=== PATIENT | male | born 1985 | race Caucasian/White ===

== ENCOUNTER 2019-03-18 20:04 | Emergency (ER) | payer SELFPAY ==
[2019-03-18] MEDS ORDERED: HYDROmorphONE 1 MG/ML SYG (20:08)
[2019-03-18] MEDS: HYDROmorphONE 1 MG/ML SYG IV (20:11)
[2019-03-18] MEDS: KETOROLAC 30 MG INJ IV (20:14)
[2019-03-18 20:25] LABS: ADD MAN DIFF? NO
[2019-03-18 20:29] LABS: WHITE BLOOD COUNT 9.9 10^3/ul (4.8-10.8)
[2019-03-18 20:29] LABS: BASOPHIL # 0.1 10^3/ul (0.0-0.1); BASOPHILS % 0.5 % (0.0-2.0); EOSINOPHILS % 0.1 % (0.0-7.0); HEMATOCRIT 41.8 % (42.0-52.0); HEMOGLOBIN 14.8 g/dl (14.0-18.0); LYMPHOCYTES # 1.5 10^3/ul (0.8-2.9); LYMPHOCYTES % 15.3 % (15.0-51.0); MEAN CORPUSCULAR HEMOGLOBIN 29.2 pg (29.0-33.0); MEAN CORPUSCULAR HGB CONC 35.4 g/dl (32.0-37.0); MEAN CORPUSCULAR VOLUME 82.4 fl (82.0-101.0); MEAN PLATELET VOLUME 9.3 fl (7.4-10.4); MONOCYTE # 0.6 10^3/ul (0.3-0.9); MONOCYTES % 5.6 % (0.0-11.0); NEUTROPHIL # 7.8 10^3/ul (1.6-7.5); NEUTROPHILS % 78.1 % (39.0-77.0); PLATELET COUNT 296 10^3/UL (140-415); RED BLOOD COUNT 5.07 10^6/ul (4.70-6.10); RED CELL DISTRIBUTION WIDTH 12.1 % (11.5-14.5)
[2019-03-18 20:52] LABS: ALANINE AMINOTRANSFERASE 46 IU/L (13-69); ALBUMIN 4.7 g/dl (3.3-4.9); ALBUMIN/GLOBULIN RATIO 1.42; ALKALINE PHOSPHATASE 74 IU/L (42-121); ANION GAP 14 (5-13); ASPARTATE AMINO TRANSFERASE 32 IU/L (15-46); BILIRUBIN,INDIRECT 0.7 mg/dl (0-1.1); BILIRUBIN,TOTAL 0.7 mg/dl (0.2-1.3); BLOOD UREA NITROGEN 16 mg/dl (7-20); CALCIUM 9.8 mg/dl (8.4-10.2); CARBON DIOXIDE 21 mmol/L (21-31); CHLORIDE 105 mmol/L (97-110); Estimated GFR > 60 mL/min (>60); GLUCOSE 112 mg/dl (70-220); LIPASE 42 U/L (23-300); POTASSIUM 3.4 mmol/L (3.5-5.1); SODIUM 140 mmol/L (135-144)
[2019-03-18] MEDS: LIDOCAINE 2% 20 ML UROJET SYRINGE MM (21:59)
[2019-03-18] MEDS: LORAZEPAM 2 MG INJ IV (22:00)
[2019-03-18] MEDS: ONDANSETRON 4 MG INJ IV (22:00)
[2019-03-18 22:39] LABS: URINE PH (Dip) POC 6.5 (5.0-8.5)
[2019-03-18 22:39] LABS: URINE BLOOD (Dip) POC 1+ (NEGATIVE); URINE GLUCOSE (Dip) POC Negative (NEGATIVE); URINE KETONES (Dip) POC Negative (NEGATIVE); URINE LEUKOCYTE EST (Dip) POC Negative (NEGATIVE); URINE NITRITE (Dip) POC Negative (NEGATIVE); URINE TOTAL PROTEIN POC 1+ (NEGATIVE)
[2019-03-18] MEDS: POTASSIUM CHLORIDE (SR) 20 MEQ TAB PO (23:10)
[2019-03-18] MEDS: TRIMETHOPRIM/SULFAMETHOX (DS) TAB PO (23:11)
== END 2019-03-19 00:05 | disposition home or self-care (01) ==
LOC: E/R 03-19 00:05
DX: N41.9 Inflammatory disease of prostate, unspecified (principal); E87.6 Hypokalemia
CPT/HCPCS: 36415; 51702; 74176; 80053; 81003; 83690; 85025; 87086; 96374; 96375; 99285-25

== ENCOUNTER 2019-03-24 05:41 | Emergency (ER) | payer MEDICAID, OTHER | END 2019-03-24 07:45 | disposition home or self-care (01) | LOC: E/R 05:41 | DX: N32.0 Bladder-neck obstruction (principal); Z87.438 Personal history of other diseases of male genital organs | CPT/HCPCS: 51702; 99283-25 ==